=== PATIENT | female | born 1950 | race Caucasian/White ===

== ENCOUNTER 2020-07-11 19:47 | Inpatient (IN) | payer MEDICARE, OTHER ==
[~2020-07-11] VITALS: Ht 160 cm; Wt 98.9 kg
[~2020-07-11 19:47] MED LIST: LODINE CAP 300300 MG PO; OMNICEF 300 MG300 MG PO; ZOFRAN4 MG PO
[2020-07-11 20:36] LABS: HEMOGLOBIN 14.4 gm/dl (12.3-15.3); RED BLOOD COUNT 4.69 M/UL (4.00-5.10); WHITE BLOOD COUNT 9.2 K/UL (4.5-11.0)
[2020-07-11 20:53] LABS: BUN/CREATININE RATIO 21 (0-10)
[2020-07-12] MEDS ORDERED: CARVEDILOL6.25 MG PO (05:05)
[2020-07-12] MEDS ORDERED: PRAMIPEXOLE DIHY1 MG PO (05:06)
[2020-07-12] MEDS ORDERED: MYSOLINE50 MG PO (05:07)
[2020-07-12] MEDS ORDERED: ZANAFLEX4 MG PO (05:08)
[2020-07-12] MEDS ORDERED: BENICAR40 MG PO (05:08)
[2020-07-12] MEDS ORDERED: HYDROCODON-ACE1 EAC4 PO (05:09)
[2020-07-12] MEDS ORDERED: CELEBREX 100MG100 MG PO (05:10)
[2020-07-12] MEDS ORDERED: INDAPAMIDE1.25 MG PO (05:11)
[2020-07-12] MEDS ORDERED: OMEPRAZOLE20 MG PO (05:11)
[2020-07-12] MEDS ORDERED: COLESTIPOL HCL1 GM PO (05:12)
[2020-07-12 17:11] LABS: BUN/CREATININE RATIO 25 (0-10)
[2020-07-13 05:39] LABS: HEMOGLOBIN 12.2 gm/dl (12.3-15.3); RED BLOOD COUNT 4.06 M/UL (4.00-5.10); WHITE BLOOD COUNT 5.8 K/UL (4.5-11.0)
[2020-07-13 06:03] LABS: BUN/CREATININE RATIO 24 (0-10)
[2020-07-14 03:49] LABS: HEMOGLOBIN 11.8 gm/dl (12.3-15.3); RED BLOOD COUNT 3.96 M/UL (4.00-5.10); WHITE BLOOD COUNT 6.1 K/UL (4.5-11.0)
[2020-07-14 04:22] LABS: BUN/CREATININE RATIO 26 (0-10)
[2020-07-15 06:09] LABS: HEMOGLOBIN 12.9 gm/dl (12.3-15.3); RED BLOOD COUNT 4.32 M/UL (4.00-5.10); WHITE BLOOD COUNT 5.6 K/UL (4.5-11.0)
[2020-07-15 06:41] LABS: BUN/CREATININE RATIO 31 (0-10)
[2020-07-15] MEDS ORDERED: INVANZ 1 GM VIAL1 GM IV (11:34)
[2020-07-15] MEDS ORDERED: MACROBID 100 M100 MG PO (14:15)
--- NOTE | 2020-07-15 15:14 | NUR ---
INSTRUCTED NEW MED MACROBID. TAKE UNTIL COMPLETE KEEP FOLLOW UP APPOINTMENTS. VERBALIZED UNDERSTANDING. MALLORY LIU R.N.
== END 2020-07-15 17:16 | disposition home or self-care (01) | DRG 689 ==
LOC: ER1 19:47 → M/S 22:43 → CDU 22:43 → M/S 07-12 16:36 → CDU 07-12 16:36 → M/S 07-12 16:36
PROVIDERS: Physician Assistant; ADMIT Internal Medicine
PROC: B24BZZ4 Ultrasonography of Heart with Aorta, Transesophageal (ICD-10-PCS; principal; 2020-07-12)
DX: N30.00 Acute cystitis without hematuria (principal); J96.01 Acute respiratory failure with hypoxia; E87.1 Hypo-osmolality and hyponatremia; Z20.822 Contact with and (suspected) exposure to COVID-19; B96.20 Unspecified Escherichia coli [E. coli] as the cause of diseases classified elsewhere; G47.33 Obstructive sleep apnea (adult) (pediatric); I08.2 Rheumatic disorders of both aortic and tricuspid valves; Z96.659 Presence of unspecified artificial knee joint; I10 Essential (primary) hypertension; I25.10 Atherosclerotic heart disease of native coronary artery without angina pectoris; M19.90 Unspecified osteoarthritis, unspecified site; E87.6 Hypokalemia; Z86.718 Personal history of other venous thrombosis and embolism; Z79.01 Long term (current) use of anticoagulants; Z90.49 Acquired absence of other specified parts of digestive tract; Z88.5 Allergy status to narcotic agent; Z95.5 Presence of coronary angioplasty implant and graft; I25.2 Old myocardial infarction
CPT/HCPCS: ECHO; 36415; 36600; 71045; 80048; 80053; 81001; 82550; 82553; 82803; 83605; 83690; 83735; 83874; 83880; 84132; 84484; 85025; 85379; 87077; 87086; 87186; 93306; 94640; 94664; 94760; 96365; 96375; 99285; G0378; J0696; J1335; J1650; J2270; J2405; Q9965; Q9967; U0002

== ENCOUNTER 2020-12-19 17:39 | Emergency (ER) | payer MEDICARE, OTHER ==
[~2020-12-19 17:39] MED LIST changes: +BENICAR40 MG PO; +CARVEDILOL6.25 MG PO; +CELEBREX 100MG100 MG PO; +COLESTIPOL HCL1 GM PO; +HYDROCODON-ACE1 EAC4 PO; +INDAPAMIDE1.25 MG PO; +INVANZ 1 GM VIAL1 GM IV; +MACROBID 100 M100 MG PO; +MYSOLINE50 MG PO; +OMEPRAZOLE20 MG PO; +PRAMIPEXOLE DIHY1 MG PO; +ZANAFLEX4 MG PO
[2020-12-19 18:29] LABS: HEMOGLOBIN 13.4 gm/dl (12.3-15.3); RED BLOOD COUNT 4.33 M/UL (4.00-5.10); WHITE BLOOD COUNT 6.1 K/UL (4.5-11.0)
[2020-12-19 19:04] LABS: BUN/CREATININE RATIO 23 (0-10)
== END 2020-12-19 20:15 | disposition left against medical advice (07) ==
LOC: ER1 17:39
PROVIDERS: Nurse Practitioner
DX: R53.1 Weakness (principal); Z20.822 Contact with and (suspected) exposure to COVID-19; Z90.49 Acquired absence of other specified parts of digestive tract
CPT/HCPCS: 71045; 80053; 82550; 82553; 83874; 84484; 85025; 93005; 99285; U0002

== ENCOUNTER 2021-12-04 11:27 | Emergency (ER) | payer MEDICARE, OTHER ==
[2021-12-04 17:10] LABS: HEMOGLOBIN 13.7 gm/dl (12.3-15.3); RED BLOOD COUNT 4.49 M/UL (4.00-5.10); WHITE BLOOD COUNT 7.9 K/UL (4.5-11.0)
== END 2021-12-04 23:35 | disposition home or self-care (01) ==
LOC: ER1 11:27
PROVIDERS: Physician Assistant
DX: R07.9 Chest pain, unspecified (principal); M54.9 Dorsalgia, unspecified; R10.812 Left upper quadrant abdominal tenderness; R10.9 Unspecified abdominal pain; I10 Essential (primary) hypertension; K21.9 Gastro-esophageal reflux disease without esophagitis; Z88.5 Allergy status to narcotic agent
CPT/HCPCS: 71045; 80053; 81001; 82550; 82553; 83690; 84484; 85025; 85379; 85610; 85730; 87086; 93005; 99284; Q9967